=== PATIENT | female | born 1955 | race African-American/Black ===

== ENCOUNTER 2016-12-31 21:04 | Emergency (ER) | payer MEDICAID ==
[~2016-12-31] VITALS: Ht 157.5 cm; Wt 77.0 kg
[~2016-12-31 21:04] MED LIST: ASPI-1035 PO; ATOR20TA PO; CLON0.2T PO; COR6 PO; FERR-63 PO; HYDR12.529 PO; IOHEXOL-350 100 ML BOTTLE ONE; KEPP500 PO; LISI-604 PO; METF500T4 PO; OMEG100016 PO; OSCAL PO; PHEN100C4 PO; QUET25TA PO; SERT50TA12 PO; SODIUM CHLORIDE 0.9% 10ML VIAL ONE
[2016-12-31] MEDS ORDERED: KETOROLAC 30MG/ML VIAL IV STA (23:26)
[2016-12-31] MEDS ORDERED: SODIUM CHLORIDE 0.9% 1,000 ML IV ONE (23:26)
[2016-12-31 23:44] LABS: BASOPHILS % 0.7 % (0.0-2.0); EOSINOPHILS % 0.9 % (0.0-5.0); HEMATOCRIT. 28.8 % (36.0-48.0); HEMOGLOBIN. 9.5 g/dL (12.0-16.0); LYMPHOCYTES % 33.2 % (20.0-50.0); MEAN CORPUSCULAR HEMOGLOBIN 27.9 pg (28.0-32.0); MEAN CORPUSCULAR HGB CONC 33.1 g/dL (31.0-37.0); MEAN CORPUSCULAR VOLUME 84.3 fL (81.0-99.0); MEAN PLATELET VOLUME 8.4 fl (7.4-10.4); MONOCYTES % 3.6 % (2.0-8.0); NEUTROPHILS % 61.6 % (40.0-76.0); PLATELET 308 x1000/uL (130-400); RED BLOOD CELL COUNT 3.42 mill/uL (4.2-5.4); RED CELL DISTRIBUTION WIDTH 13.8 % (11.6-14.6); WHITE BLOOD COUNT 9.9 x1000/uL (4.5-11.0)
[2016-12-31 23:57] LABS: ANION GAP 10; CARBON DIOXIDE 29 mEq/L (21-32); CHLORIDE 107 mEq/L (98-107); UREA NITROGEN BLOOD 20 mg/dL (7-21)
[2016-12-31 23:58] LABS: ALANINE AMINOTRANSFERASE 18 IU/L (13-61); ALBUMIN 3.3 g/dL (3.4-5.0); INDEX HEMOLYSI 1 (1-3); INDEX ICTERIC 1 (1-4); INDEX LIPEMIC 1 (1-3); LIPASE 102 IU/L (73-393); TROPONIN I 0.04 ng/mL (0.00-0.04); eGFR > 60 mL/min (>60)
[2017-01-01 00:46] LABS: CLARITY URINE CLEAR (CLEAR); COLOR URINE YELLOW (YELLOW); GLUCOSE URINE NEGATIVE (NEGATIVE); KETONES URINE NEGATIVE (NEGATIVE); LEUKOCYTE ESTERASE URINE 1+ (NEGATIVE); NITRITE URINE NEGATIVE (NEGATIVE); OCCULT BLOOD URINE NEGATIVE (NEGATIVE); PROTEIN URINE NEGATIVE (NEGATIVE); SPECIFIC GRAVITY URINE 1.025 (1.005-1.030)
[2017-01-01 01:41] LABS: SQUAMOUS EPITHELIAL CELL URINE 1+ /lpf (RARE/1+)
[2017-01-01 01:43] LABS: RBC URINE 0-2 /hpf (0-2)
[2017-01-01 01:45] LABS: BACTERIA URINE TRACE
[2017-01-01 03:11] VITALS: BP 155/74
== END 2017-01-01 06:01 | disposition home or self-care (01) ==
LOC: ER 21:04
DX: M54.6 Pain in thoracic spine (principal); R20.0 Anesthesia of skin; E11.9 Type 2 diabetes mellitus without complications; E78.00 Pure hypercholesterolemia, unspecified; I10 Essential (primary) hypertension; F20.9 Schizophrenia, unspecified; R56.9 Unspecified convulsions; Z88.0 Allergy status to penicillin; Z88.5 Allergy status to narcotic agent; Z88.6 Allergy status to analgesic agent; Z79.82 Long term (current) use of aspirin; Z79.899 Other long term (current) drug therapy; Z90.710 Acquired absence of both cervix and uterus
CPT/HCPCS: 36415; 71010; 71275; 80053; 81001; 83690; 84484; 85025; 93005; 96361; 96374; 99285; A4216; J1885; J7030; Q9967; Z7610

== ENCOUNTER 2017-01-11 21:02 | Emergency (ER) | payer MEDICAID ==
[~2017-01-11] VITALS: Ht 157.5 cm; Wt 79.4 kg
[~2017-01-11 21:02] MED LIST changes: -IOHEXOL-350 100 ML BOTTLE ONE; -SODIUM CHLORIDE 0.9% 10ML VIAL ONE
[2017-01-12 01:45] VITALS: BP 141/54
[2017-01-12] MEDS ORDERED: DEXAMETHASONE 10MG/ML 1ML VIAL IM ONE (03:00)
== END 2017-01-12 03:25 | disposition home or self-care (01) ==
LOC: ER 21:30
DX: J02.9 Acute pharyngitis, unspecified (principal); E11.9 Type 2 diabetes mellitus without complications; E78.00 Pure hypercholesterolemia, unspecified; I10 Essential (primary) hypertension; Z88.0 Allergy status to penicillin; Z88.5 Allergy status to narcotic agent; Z88.6 Allergy status to analgesic agent; Z88.8 Allergy status to other drugs, medicaments and biological substances; Z79.4 Long term (current) use of insulin; Z79.899 Other long term (current) drug therapy; Z90.710 Acquired absence of both cervix and uterus
CPT/HCPCS: 96372; 99283; J1100; Z7610

== ENCOUNTER 2017-01-17 20:27 | Inpatient (IN) | payer MEDICAID, OTHER ==
[~2017-01-17] VITALS: Ht 157.5 cm; Wt 76.2 kg
[2017-01-17] MEDS ORDERED: MORPHINE SULFATE 4 MG/ML CPJ (NOT FOR IM USE) IV STA (21:37)
[2017-01-17] MEDS ORDERED: ONDANSETRON HCL 4MG/2ML VIAL IV STA (21:37)
[2017-01-17] MEDS ORDERED: ASPIRIN 81MG TABLET PO ONE (21:45)
[2017-01-17] MEDS ORDERED: NITROGLYCERIN OINT 1GM/INCH UDPKT TD ONE (21:45)
[2017-01-17 22:00] LABS: BASOPHILS % 1.2 % (0.0-2.0); EOSINOPHILS % 1.2 % (0.0-5.0); HEMATOCRIT. 29.6 % (36.0-48.0); HEMOGLOBIN. 9.7 g/dL (12.0-16.0); LYMPHOCYTES % 32.6 % (20.0-50.0); MEAN CORPUSCULAR HEMOGLOBIN 27.2 pg (28.0-32.0); MEAN CORPUSCULAR HGB CONC 32.8 g/dL (31.0-37.0); MEAN PLATELET VOLUME 7.9 fl (7.4-10.4); MONOCYTES % 4.7 % (2.0-8.0); NEUTROPHILS % 60.3 % (40.0-76.0); PLATELET 424 x1000/uL (130-400); RED BLOOD CELL COUNT 3.56 mill/uL (4.2-5.4); WHITE BLOOD COUNT 10.7 x1000/uL (4.5-11.0)
[2017-01-17 22:04] LABS: CHLORIDE 106 mEq/L (98-107); INDEX HEMOLYSI 4 (1-3); INDEX ICTERIC 1 (1-4); INDEX LIPEMIC 1 (1-3)
[2017-01-17 22:07] LABS: ANION GAP 13; CALCIUM 8.4 mg/dL (8.5-10.1); CARBON DIOXIDE 28 mEq/L (21-32); ETHANOL BLOOD < 10 mg/dL; UREA NITROGEN BLOOD 16 mg/dL (7-21)
[2017-01-17 22:08] LABS: ALANINE AMINOTRANSFERASE 20 IU/L (13-61); eGFR > 60 mL/min (>60)
[2017-01-17 22:11] LABS: PHENYTOIN 0.7 ug/mL (10-20)
[2017-01-17 22:13] LABS: TROPONIN I 0.03 ng/mL (0.00-0.04)
[2017-01-17] MEDS ORDERED: SODIUM CHLORIDE 0.9% 1,000 ML IV ONE (22:54)
[2017-01-17] MEDS ORDERED: PHENYTOIN SODIUM 1,000 MG in SODIUM CHLORIDE 0.9% 100 ML IV ONE (23:00)
[2017-01-18] MEDS ORDERED: NA PHOS,M-B/NA PHOS,DI-BA ENEMA 118ML PR PRN (00:45)
[2017-01-18] MEDS ORDERED: LORAZEPAM 2MG/ML CPJ IV PRN (00:45)
[2017-01-18] MEDS ORDERED: DIPHENHYDRAMINE 50MG/ML VIAL IV PRN (00:45)
[2017-01-18] MEDS ORDERED: IPRATROPIUM/ALBUTEROL 0.5-3(2.5)MG/3ML NEB INH PRN (00:45)
[2017-01-18] MEDS ORDERED: MAGNESIUM/ALUMINUM HYDROXIDE/SIMETHICONE 30ML UDC PO PRN (00:45)
[2017-01-18] MEDS ORDERED: HYDROMORPHONE HCL/PF 2MG/ML CPJ IV PRN (00:45)
[2017-01-18] MEDS ORDERED: ACETAMINOPHEN 325MG TABLET PO PRN (00:45)
[2017-01-18] MEDS ORDERED: DOCUSATE SODIUM 100MG CAPSULE PO PRN (00:45)
[2017-01-18] MEDS ORDERED: HYDROCODONE/ACETAMINOPHEN 5/325MG TABLET PO PRN (00:45)
[2017-01-18] MEDS ORDERED: ONDANSETRON HCL 4MG/2ML VIAL IV PRN (00:45)
[2017-01-18] MEDS ORDERED: GUAIFENESIN 200MG/10ML SUGAR FREE UDC PO PRN (00:45)
[2017-01-18] MEDS ORDERED: CLONIDINE 0.1MG TABLET PO PRN (00:45)
[2017-01-18 01:30] LABS: ANION GAP 12; CALCIUM 7.8 mg/dL (8.5-10.1); CARBON DIOXIDE 26 mEq/L (21-32); CHLORIDE 109 mEq/L (98-107); INDEX HEMOLYSI 1 (1-3); INDEX ICTERIC 1 (1-4); INDEX LIPEMIC 1 (1-3); TROPONIN I 0.04 ng/mL (0.00-0.04); UREA NITROGEN BLOOD 16 mg/dL (7-21); eGFR > 60 mL/min (>60)
[2017-01-18 03:20] VITALS: BP 167/95
[2017-01-18] MEDS ORDERED: DEXTROSE 50% WATER 50ML SYRINGE IV PRN (06:45)
[2017-01-18] MEDS: BLOOD SUGAR DIAGNOSTIC STRIP TEST SCH ×4 (07:20→21:53)
[2017-01-18 08:00] VITALS: BP 140/89
[2017-01-18] MEDS: METFORMIN HCL 500MG TABLET PO SCH ×2 (09:54→17:35)
[2017-01-18] MEDS: LISINOPRIL 20MG TABLET PO SCH (09:54)
[2017-01-18] MEDS: CARVEDILOL 6.25 MG TABLET PO SCH ×2 (09:55→22:11)
[2017-01-18] MEDS: HYDROCHLOROTHIAZIDE 12.5MG CAPSULE PO SCH (09:55)
[2017-01-18] MEDS: SERTRALINE HCL 50MG TABLET PO SCH (09:55)
[2017-01-18] MEDS: FERROUS SULFATE 325MG TABLET PO SCH (09:55)
[2017-01-18] MEDS: ASPIRIN 81MG EC TABLET PO SCH (09:55)
[2017-01-18] MEDS: LEVETIRACETAM 500MG TABLET PO SCH ×2 (09:55→17:35)
[2017-01-18] MEDS: ENOXAPARIN 40MG/0.4ML SYR SUBCUT SCH (09:56)
[2017-01-18] MEDS: INSULIN LISPRO 100 UNITS/ML SUBCUT SCH ×4 (10:40→22:09)
[2017-01-18] MEDS: CLONIDINE 0.2MG TABLET PO SCH ×2 (13:01→22:00)
[2017-01-18 14:00] VITALS: BP 111/67
[2017-01-18 16:00] VITALS: BP 115/85
[2017-01-18 20:00] VITALS: BP 123/83
[2017-01-18] MEDS ORDERED: QUETIAPINE FUMARATE 25MG TABLET PO SCH (21:00)
[2017-01-18] MEDS ORDERED: ATORVASTATIN CALCIUM 20MG TABLET PO SCH (21:00)
[2017-01-18] MEDS ORDERED: PHENYTOIN SODIUM EXTENDED 100MG CAPSULE PO SCH (21:00)
[2017-01-19] VITALS: BP 149/80
[2017-01-19 00:19] LABS: CREATINE KINASE 40 IU/L (26-192); CREATINE KINASE MB FRACTION < 0.5 ng/mL (0.5-3.6); INDEX HEMOLYSI 1 (1-3); TROPONIN I 0.04 ng/mL (0.00-0.04)
[2017-01-19 04:00] VITALS: BP 147/77
[2017-01-19 05:55] LABS: CHLORIDE 105 mEq/L (98-107); INDEX HEMOLYSI 1 (1-3); INDEX ICTERIC 1 (1-4); INDEX LIPEMIC 1 (1-3)
[2017-01-19 06:10] LABS: ALANINE AMINOTRANSFERASE 13 IU/L (13-61); ALBUMIN 2.6 g/dL (3.4-5.0); ANION GAP 12; CALCIUM 8.8 mg/dL (8.5-10.1); CARBON DIOXIDE 29 mEq/L (21-32); CREATINE KINASE 33 IU/L (26-192); CREATINE KINASE MB FRACTION < 0.5 ng/mL (0.5-3.6); HDL CHOLESTEROL 60 mg/dL (40-59); LDL CHOLESTEROL 41 mg/dL (5-100); T4 FREE 1.12 ng/dL (0.76-1.46); THYROID STIMULATING HORMONE 0.24 uIU/mL (0.36-3.74); TRIGLYCERIDE 146 mg/dL (0-150); TROPONIN I 0.04 ng/mL (0.00-0.04); UREA NITROGEN BLOOD 11 mg/dL (7-21); eGFR > 60 mL/min (>60)
[2017-01-19 06:11] LABS: BASOPHILS % 0.5 % (0.0-2.0); EOSINOPHILS % 1.5 % (0.0-5.0); HEMATOCRIT. 26.7 % (36.0-48.0); HEMOGLOBIN. 8.8 g/dL (12.0-16.0); LYMPHOCYTES % 39.4 % (20.0-50.0); MEAN CORPUSCULAR HEMOGLOBIN 27.2 pg (28.0-32.0); MEAN CORPUSCULAR HGB CONC 32.9 g/dL (31.0-37.0); MEAN CORPUSCULAR VOLUME 82.5 fL (81.0-99.0); MEAN PLATELET VOLUME 7.6 fl (7.4-10.4); MONOCYTES % 5.5 % (2.0-8.0); NEUTROPHILS % 53.1 % (40.0-76.0); PLATELET 345 x1000/uL (130-400); RED BLOOD CELL COUNT 3.23 mill/uL (4.2-5.4); RED CELL DISTRIBUTION WIDTH 14.1 % (11.6-14.6); WHITE BLOOD COUNT 7.4 x1000/uL (4.5-11.0)
[2017-01-19] MEDS: BLOOD SUGAR DIAGNOSTIC STRIP TEST SCH (06:41)
[2017-01-19] MEDS: METFORMIN HCL 500MG TABLET PO SCH (08:54)
[2017-01-19] MEDS: INSULIN LISPRO 100 UNITS/ML SUBCUT SCH (08:55)
[2017-01-19] MEDS: SERTRALINE HCL 50MG TABLET PO SCH (09:57)
[2017-01-19] MEDS: CARVEDILOL 6.25 MG TABLET PO SCH (09:57)
[2017-01-19] MEDS: LISINOPRIL 20MG TABLET PO SCH (09:57)
[2017-01-19] MEDS: ASPIRIN 81MG EC TABLET PO SCH (09:57)
[2017-01-19] MEDS: LEVETIRACETAM 500MG TABLET PO SCH (09:57)
[2017-01-19] MEDS: FERROUS SULFATE 325MG TABLET PO SCH (09:57)
[2017-01-19] MEDS: HYDROCHLOROTHIAZIDE 12.5MG CAPSULE PO SCH (09:57)
[2017-01-19] MEDS: ENOXAPARIN 40MG/0.4ML SYR SUBCUT SCH (09:58)
[2017-01-19 11:37] VITALS: BP 123/74
== END 2017-01-19 12:15 | disposition home or self-care (01) | DRG 422 ==
LOC: ER 20:28 → 6WST 01-18 00:29
PROVIDERS: ADMIT Internal Medicine; ATTEND Internal Medicine
DX: E86.0 Dehydration (principal); G93.41 Metabolic encephalopathy; E11.65 Type 2 diabetes mellitus with hyperglycemia; G40.909 Epilepsy, unspecified, not intractable, without status epilepticus; E78.5 Hyperlipidemia, unspecified; E78.00 Pure hypercholesterolemia, unspecified; I25.10 Atherosclerotic heart disease of native coronary artery without angina pectoris; E87.8 Other disorders of electrolyte and fluid balance, not elsewhere classified; I10 Essential (primary) hypertension; I16.0 Hypertensive urgency; Z82.49 Family history of ischemic heart disease and other diseases of the circulatory system; Z90.710 Acquired absence of both cervix and uterus; Z91.19 Patient's noncompliance with other medical treatment and regimen; Z88.6 Allergy status to analgesic agent; Z88.0 Allergy status to penicillin; Z88.8 Allergy status to other drugs, medicaments and biological substances
CPT/HCPCS: 36415; 70450; 71010; 80048; 80053; 80061; 80185; 82550; 82553; 82962; 83036; 83605; 83880; 84439; 84443; 84484; 85025; 85379; 85610; 93005; 93306; 93970; 96365; 96375; 99291; G0482; J1165; J1650; J1815; J2405; J7030; J7050

== ENCOUNTER 2017-01-29 15:56 | Emergency (ER) | payer MEDICAID, OTHER ==
[~2017-01-29] VITALS: Ht 154.9 cm; Wt 76.0 kg
[2017-01-29] MEDS ORDERED: VISCOUS LIDOCAINE 2% 15 ML UDC PO STA (18:35)
[2017-01-29] MEDS ORDERED: IBUPROFEN 600MG TABLET PO STA (18:35)
[2017-01-29 18:44] VITALS: BP 100/54
== END 2017-01-29 19:12 | disposition home or self-care (01) ==
LOC: ER 15:57
DX: J30.89 Other allergic rhinitis (principal); J02.9 Acute pharyngitis, unspecified; E11.9 Type 2 diabetes mellitus without complications; E78.00 Pure hypercholesterolemia, unspecified; I10 Essential (primary) hypertension; Z88.0 Allergy status to penicillin; Z88.6 Allergy status to analgesic agent; Z88.5 Allergy status to narcotic agent; Z79.82 Long term (current) use of aspirin; Z79.84 Long term (current) use of oral hypoglycemic drugs; Z79.899 Other long term (current) drug therapy; Z90.710 Acquired absence of both cervix and uterus; Z82.49 Family history of ischemic heart disease and other diseases of the circulatory system
CPT/HCPCS: 99283

== ENCOUNTER 2017-01-29 22:23 | Emergency (ER) | payer MEDICAID, OTHER ==
[~2017-01-29] VITALS: Ht 152.4 cm; Wt 77.0 kg
[2017-01-30] MEDS ORDERED: SODIUM CHLORIDE 0.9% 1,000 ML IV ONE (02:11)
[2017-01-30 02:36] LABS: BASOPHILS % 0.9 % (0.0-2.0); EOSINOPHILS % 0.5 % (0.0-5.0); HEMATOCRIT. 31.8 % (36.0-48.0); HEMOGLOBIN. 10.4 g/dL (12.0-16.0); LYMPHOCYTES % 33.3 % (20.0-50.0); MEAN CORPUSCULAR HEMOGLOBIN 26.8 pg (28.0-32.0); MEAN CORPUSCULAR HGB CONC 32.7 g/dL (31.0-37.0); MEAN PLATELET VOLUME 8.2 fl (7.4-10.4); MONOCYTES % 4.1 % (2.0-8.0); NEUTROPHILS % 61.2 % (40.0-76.0); PLATELET 323 x1000/uL (130-400); RED BLOOD CELL COUNT 3.88 mill/uL (4.2-5.4); RED CELL DISTRIBUTION WIDTH 14.6 % (11.6-14.6); WHITE BLOOD COUNT 8.8 x1000/uL (4.5-11.0)
[2017-01-30 02:44] LABS: ALANINE AMINOTRANSFERASE 15 IU/L (13-61); ALBUMIN 3.7 g/dL (3.4-5.0); CALCIUM 9.1 mg/dL (8.5-10.1); CARBON DIOXIDE 27 mEq/L (21-32); CHLORIDE 104 mEq/L (98-107); INDEX HEMOLYSI 1 (1-3); INDEX ICTERIC 1 (1-4); INDEX LIPEMIC 1 (1-3); UREA NITROGEN BLOOD 25 mg/dL (7-21); eGFR > 60 mL/min (>60)
[2017-01-30 02:55] LABS: ANION GAP 12; PHENYTOIN < 0.4 ug/mL (10-20)
[2017-01-30 07:20] VITALS: BP 130/54
== END 2017-01-30 07:49 | disposition home or self-care (01) ==
LOC: ER 22:23
DX: K29.70 Gastritis, unspecified, without bleeding (principal); E86.0 Dehydration; N28.9 Disorder of kidney and ureter, unspecified; G40.909 Epilepsy, unspecified, not intractable, without status epilepticus; E11.9 Type 2 diabetes mellitus without complications; I10 Essential (primary) hypertension; R05 Cough; R11.10 Vomiting, unspecified; Z88.0 Allergy status to penicillin; Z88.6 Allergy status to analgesic agent; Z88.5 Allergy status to narcotic agent; Z88.8 Allergy status to other drugs, medicaments and biological substances; Z79.899 Other long term (current) drug therapy; Z79.82 Long term (current) use of aspirin
CPT/HCPCS: 36415; 80053; 80185; 85025; 96360; 96361; 99285; J7030

== ENCOUNTER 2017-04-12 17:12 | Inpatient (IN) | payer MEDICAID ==
[~2017-04-12] VITALS: Ht 156.2 cm; Wt 79.4 kg
[~2017-04-12 17:12] MED LIST changes: -ASPI-1035 PO; +ASPI-1158 PO
[2017-04-12] MEDS ORDERED: ASPIRIN 325MG EC TABLET PO ONE (21:00)
[2017-04-12 21:31] LABS: BASOPHILS % 0.9 % (0.0-2.0); EOSINOPHILS % 1.3 % (0.0-5.0); HEMATOCRIT. 29.5 % (36.0-48.0); HEMOGLOBIN. 9.9 g/dL (12.0-16.0); LYMPHOCYTES % 32.9 % (20.0-50.0); MEAN CORPUSCULAR HEMOGLOBIN 27.7 pg (28.0-32.0); MEAN CORPUSCULAR VOLUME 82.3 fL (81.0-99.0); MEAN PLATELET VOLUME 7.5 fl (7.4-10.4); MONOCYTES % 4.9 % (2.0-8.0); PLATELET 339 x1000/uL (130-400); RED BLOOD CELL COUNT 3.59 mill/uL (4.2-5.4); RED CELL DISTRIBUTION WIDTH 15.4 % (11.6-14.6)
[2017-04-12 21:37] LABS: PROTHROMBIN TIME 10.6 sec
[2017-04-12 21:55] LABS: CARBON DIOXIDE 28 mEq/L (21-32); CHLORIDE 104 mEq/L (98-107)
[2017-04-12 21:59] LABS: TROPONIN I 0.02 ng/mL (0.00-0.04)
[2017-04-12] MEDS ORDERED: ZOLPIDEM TARTRATE 5MG TABLET PO PRN (22:45)
[2017-04-12] MEDS ORDERED: DIPHENHYDRAMINE 50MG/ML VIAL IV PRN (22:45)
[2017-04-12] MEDS ORDERED: NA PHOS,M-B/NA PHOS,DI-BA ENEMA 118ML PR PRN (22:45)
[2017-04-12] MEDS ORDERED: ACETAMINOPHEN 325MG TABLET PO PRN (22:45)
[2017-04-12] MEDS ORDERED: ONDANSETRON HCL 4MG/2ML VIAL IV PRN (22:45)
[2017-04-12] MEDS ORDERED: KETOROLAC 15MG/ML VIAL IV PRN (22:45)
[2017-04-12] MEDS ORDERED: IPRATROPIUM/ALBUTEROL 0.5-3(2.5)MG/3ML NEB INH PRN (22:45)
[2017-04-12] MEDS ORDERED: DOCUSATE SODIUM 100MG CAPSULE PO PRN (22:45)
[2017-04-12] MEDS ORDERED: GUAIFENESIN 200MG/10ML SUGAR FREE UDC PO PRN (22:45)
[2017-04-12] MEDS ORDERED: MAGNESIUM/ALUMINUM HYDROXIDE/SIMETHICONE 30ML UDC PO PRN (22:45)
[2017-04-12] MEDS ORDERED: LORAZEPAM 2MG/ML CPJ IV PRN (22:45)
[2017-04-12] MEDS ORDERED: NITROGLYCERIN 0.4MG TABLET SL SL PRN (22:45)
[2017-04-12] MEDS ORDERED: CLONIDINE 0.1MG TABLET PO PRN (22:45)
[2017-04-12] MEDS ORDERED: DEXTROSE 50% WATER 50ML SYRINGE IV PRN (23:00)
[2017-04-12 23:28] LABS: TOTAL IRON BINDING CAPACITY 352 ug/dL (250-450)
[2017-04-12 23:50] LABS: FOLIC ACID (FOLATE) SERUM 11.1 ng/mL (>5.38)
[2017-04-13 02:10] VITALS: BP 154/79
[2017-04-13 04:00] VITALS: BP 197/88
[2017-04-13 05:54] LABS: *AMPHETAMINES SCREEN URINE NEGATIVE (NEGATIVE); *BARBITURATES SCREEN URINE NEGATIVE (NEGATIVE); *BENZODIAZEPINES SCREEN URINE NEGATIVE (NEGATIVE); *COCAINE SCREEN URINE NEGATIVE (NEGATIVE); CANNABINOID URINE SCREEN NEGATIVE (NEGATIVE); METHADONE URINE SCREEN NEGATIVE (NEGATIVE); OPIATES URINE SCREEN NEGATIVE (NEGATIVE); PHENCYCLIDINE URINE SCREEN NEGATIVE (NEGATIVE)
[2017-04-13] MEDS ORDERED: CARVEDILOL 3.125 MG TABLET PO SCH (06:00)
[2017-04-13 06:30] VITALS: BP 114/86
[2017-04-13] MEDS ORDERED: BLOOD SUGAR DIAGNOSTIC STRIP TEST SCH (06:45)
[2017-04-13] MEDS ORDERED: INSULIN LISPRO 100 UNITS/ML SUBCUT SCH (07:15)
[2017-04-13 07:30] LABS: CREATINE KINASE 37 IU/L (26-192); CREATINE KINASE MB FRACTION < 0.5 ng/mL (0.5-3.6); TROPONIN I 0.02 ng/mL (0.00-0.04)
[2017-04-13 08:00] VITALS: BP 132/64
[2017-04-13] MEDS ORDERED: ENOXAPARIN 40MG/0.4ML SYR SUBCUT SCH (09:00)
[2017-04-13] MEDS ORDERED: LISINOPRIL 20MG TABLET PO SCH (09:00)
[2017-04-13] MEDS ORDERED: PANTOPRAZOLE SODIUM 40 MG/VIAL IV SCH (09:00)
[2017-04-13] MEDS ORDERED: ASPIRIN 325MG EC TABLET PO SCH (09:00)
[2017-04-13] MEDS ORDERED: KETOROLAC 15MG/ML VIAL IV PRN (10:00)
[2017-04-13 10:58] VITALS: BP 132/64
== END 2017-04-13 11:20 | disposition home or self-care (01) | DRG 243 ==
LOC: ER 21:02 → 5WST 22:14 → ENRESERV 23:07
PROVIDERS: ADMIT Internal Medicine; ATTEND Internal Medicine
DX: K21.9 Gastro-esophageal reflux disease without esophagitis (principal); E44.1 Mild protein-calorie malnutrition; I10 Essential (primary) hypertension; E11.9 Type 2 diabetes mellitus without complications; D63.8 Anemia in other chronic diseases classified elsewhere; E78.00 Pure hypercholesterolemia, unspecified; Z60.2 Problems related to living alone; I25.10 Atherosclerotic heart disease of native coronary artery without angina pectoris; Z82.49 Family history of ischemic heart disease and other diseases of the circulatory system; Z68.32 Body mass index [BMI] 32.0-32.9, adult; Z79.82 Long term (current) use of aspirin; Z79.899 Other long term (current) drug therapy; Z88.0 Allergy status to penicillin; Z88.6 Allergy status to analgesic agent; Z88.8 Allergy status to other drugs, medicaments and biological substances
CPT/HCPCS: 36415; 71010; 80053; 80061; 80305; 82550; 82553; 82607; 82746; 82962; 83036; 83540; 83550; 83880; 84484; 85025; 85610; 93005; 99285; C1893; C9113; J1650

== ENCOUNTER 2023-09-29 12:25 | Emergency (ER) | payer BC, MEDICAID ==
[~2023-09-29] VITALS: Ht 157.5 cm; Wt 77.0 kg
[~2023-09-29 12:25] MED LIST changes: -ASPI-1158 PO; +ASPI-1406 PO; -CLON0.2T PO; -COR6 PO; -LISI-604 PO; +LISI20TA31 PO; +METF-414 PO; -METF500T4 PO; -OSCAL PO; -QUET25TA PO; -SERT50TA12 PO
[2023-09-29 12:39] VITALS: O2SAT 100
[2023-09-29 12:40] VITALS: BP 118/61; PULSE 86; RESP 16; TEMP 98.8
[2023-09-29 15:54] LABS: BASOPHILS % 0.4 % (0.0-2.0); EOSINOPHILS % 0.3 % (0.0-5.0); HEMATOCRIT. 32.7 % (36.0-48.0); MEAN CORPUSCULAR HEMOGLOBIN 29.6 pg (28.0-32.0); MEAN CORPUSCULAR HGB CONC 33.6 g/dL (31.0-37.0); MEAN PLATELET VOLUME 7.4 fl (7.4-10.4); MONOCYTES % 3.6 % (2.0-8.0); NEUTROPHILS % 71.7 % (40.0-76.0); PLATELET 465 x1000/uL (130-400); RED BLOOD CELL COUNT 3.72 mill/uL (4.2-5.4); RED CELL DISTRIBUTION WIDTH 13.8 % (11.6-14.6); WHITE BLOOD COUNT 9.9 x1000/uL (4.5-11.0)
[2023-09-29 16:16] LABS: ALANINE AMINOTRANSFERASE 12 IU/L (10-49); ALBUMIN 4.5 g/dL (3.2-4.8); ASPARTATE AMINOTRANSFERASE 19 IU/L (<34); BILIRUBIN TOTAL 0.4 mg/dL (0.1-1.0); CALCIUM 9.7 mg/dL (8.7-10.4); CARBON DIOXIDE 28 mEq/L (21-32); CHLORIDE 104 mEq/L (98-107); GLUCOSE 90 mg/dL (70-105); POTASSIUM 4.6 mEq/L (3.5-5.1); PROTEIN TOTAL 8.1 g/dL (6.0-8.3); SODIUM 137 mEq/L (136-145); UREA NITROGEN BLOOD 15 mg/dL (9-23)
[2023-09-29] MEDS ORDERED: AMLO10TA80 MT (16:35)
[2023-09-29] MEDS ORDERED: LISI40TA13 MT (16:35)
[2023-09-29] MEDS ORDERED: FERR325T6 MT (16:35)
== END 2023-09-29 17:13 | disposition home or self-care (01) ==
LOC: ER 12:25
DX: I10 Essential (primary) hypertension (principal); E11.9 Type 2 diabetes mellitus without complications; Z90.710 Acquired absence of both cervix and uterus; Z98.890 Other specified postprocedural states; Z88.0 Allergy status to penicillin; Z88.6 Allergy status to analgesic agent; Z88.5 Allergy status to narcotic agent; Z88.8 Allergy status to other drugs, medicaments and biological substances
CPT/HCPCS: 36415; 80053; 85025; 99283